=== PATIENT | female | born 1965 | race Caucasian/White ===

== ENCOUNTER 2019-05-01 13:55 | Emergency (ER) | payer BC ==
[2019-05-01] MEDS ORDERED: Lactated Ringers 1,000 ML IV ONE (14:32)
[2019-05-01] MEDS ORDERED: Ondansetron 4 MG/2 ML SDV IVPUSH ONE (14:33)
[2019-05-01] MEDS ORDERED: HYDROmorphone 0.5 MG/0.5 ML Syringe IVPUSH ONE (14:39)
--- NOTE | 2019-05-01 14:48 | EDM.PDOC ---
ED HPI GENERAL MEDICAL PROBLEM - General Chief Complaint: Abdominal Pain Stated Complaint: THREE BOWL SURGERY IN PAST YEAR AND HALF Time Seen by Provider: 05/01/19 14:30 Source of Information: Reports: Patient, Family, RN History Limitations: Reports: Other (lack of old records) - History of Present Illness INITIAL COMMENTS - FREE TEXT/NARRATIVE: 54 yo female visiting here for today presents with abdominal pain and nausea. No fever. Has had at least 3 bowel surgeries for a partial colectomy and adhesions. One surgery was in [facility], one in [place] at [facility] and one at [place]. Does feel like there is some distention. Pain is across much of the upper 2/3 of her abdomen. Has not vomited. Pain began earlier today. Onset: Today Onset Date: 05/01/19 Duration: Hour(s):, Constant Location: Reports: Abdomen Quality: Reports: Pressure Severity: Moderate Improves with: Reports: None Worsens with: Reports: Other (time) Context: Reports: Other (See HPI) Associated Symptoms: Reports: Nausea/Vomiting (no vomiting) Treatments NEGOTIATOR: Reports: Other (see below) (none) abd Pain Score (Numeric/FACES): 6 - Related Data Allergies Allergy/AdvReac Type Severity Reaction Status Date / Time clarithromycin [From Biaxin] Allergy Abdominal Verified 05/01/19 14:16 Pain dust mites Allergy Other Uncoded 05/01/19 14:16 food dyes Allergy Rash Uncoded 05/01/19 14:16 Home Meds: Home Meds Albuterol Sulfate [Proair Hfa] 1 - 2 puff IH Q4H PRN 05/01/19 [History] Aspirin [Ecotrin EC] 81 mg PO DAILY 05/01/19 [History] Cholecalciferol (Vitamin D3) [Vitamin D3] 5,000 unit PO DAILY 05/01/19 [History] ClonazePAM [KlonoPIN] 0.5 mg PO TID PRN 05/01/19 [History] Fluticasone Propionate [Flonase] 2 sprays NS DAILY 05/01/19 [History] Fluticasone Propionate [Flovent HFA 110 MCG] 1 - 2 puff INH DAILY 05/01/19 [ History] Levothyroxine [Synthroid] 50 mcg PO ACBREAKFAST 05/01/19 [History] Lubiprostone [Amitiza] 8 mcg PO BID 05/01/19 [History] PARoxetine HCl [Paxil] 30 mg PO DAILY 05/01/19 [History] Polyethylene Glycol 3350 [MiraLAX] 17 gm PO DAILY 05/01/19 [History] guaiFENesin [Mucinex] 1 - 2 tab PO DAILY PRN 05/01/19 [History] traZODone HCl [Trazodone HCl] 1 - 2 tab PO BEDTIME 05/01/19 [History] Past Medical History Respiratory History: Reports: Asthma 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 05/2018 adhesions, internal hernia of SB. chronic dilated small bowel-. 12/2018- twist fixed- and adhesion fixed Female Surgical History: Reports: Other (See Below) Other Female Surgeries/Procedures: breast augmentation Musculoskeletal Surgical History: Reports: Carpal Tunnel, Other (See Below) Other Musculoskeletal Surgeries/Procedures:: elbow surgery Social & Family History - Tobacco Use Smoking Status *Q: Never Smoker - Caffeine Use Caffeine Use: Reports: Tea - Recreational Drug Use Recreational Drug Use: No ED ROS GENERAL - Review of Systems Review Of Systems: See Below Constitutional: Reports: No Symptoms HEENT: Reports: No Symptoms Respiratory: Reports: No Symptoms Cardiovascular: Reports: No Symptoms GI/Abdominal: Reports: Abdominal Pain, Nausea. Denies: Anorexia, Black Stool, Bloody Stool, Constipation, Diarrhea, Decreased Appetite, Distension, Flatus, Hematemesis, Hematochezia, Melena, Vomiting : Reports: No Symptoms Musculoskeletal: Reports: No Symptoms Skin: Reports: No Symptoms Neurological: Reports: No Symptoms ED EXAM, GI/ABD - Physical Exam Exam: See Below Exam Limited By: No Limitations General Appearance: Alert, WD/WN, Mild Distress Eyes: Bilateral: Normal Appearance Ears: Normal External Exam, Normal Canal, Hearing Grossly Normal Nose: Normal Inspection, No Blood Throat/Mouth: Normal Inspection, Normal Lips, Normal Oropharynx, Normal Voice, No Airway Compromise Head: Atraumatic, Normocephalic Neck: Normal Inspection Respiratory/Chest: No Respiratory Distress, Lungs Clear, Normal Breath Sounds, No Accessory Muscle Use Cardiovascular: Regular Rate, Rhythm, No Edema GI/Abdominal Exam: Normal Bowel Sounds, Soft, Distended, Rebound, Tender ( diffuse). No: Non-Tender, No Distention, Guarding, Rigid, Abnormal Bowel Sounds , Hernia Back Exam: Normal Inspection Extremities: Normal Inspection, Normal Range of Motion, Non-Tender, No Pedal Edema Neurological: Alert, Oriented, CN II-XII Intact, Normal Cognition, No Motor/ Sensory Deficits Psychiatric: Normal Affect, Normal Mood Skin Exam: Warm, Dry, Intact, Normal Color, No Rash Course - Vital Signs Text/Narrative:: Discussed with Dr. Owusu at [facility], hospitalist @ 1645 Last Recorded V/S: Last Vital Signs Temp 36.2 C 05/01/19 14:29 Pulse 83 05/01/19 14:29 Resp 16 05/01/19 14:29 BP 117/73 05/01/19 14:29 Pulse Ox 98 05/01/19 14:29 - Orders/Labs/Meds Orders: Active Orders 24 hr Category Date Time Status Iopamidol [Isovue-300 (61%)] Med 05/01/19 15:30 Active 100 ml IV . DIRECTED Sodium Chloride 0.9% [Normal Saline] 100 ml Med 05/01/19 15:30 Active IV ASDIRECTED Medication Orders Sodium Chloride (Normal Saline) 100 mls @ 3 mls/sec IV ASDIRECTED BRI Last Admin: 05/01/19 15:45 Dose: 3 mls/sec Iopamidol (Isovue-300 (61%)) 100 ml IV . DIRECTED BRI Last Admin: 05/01/19 15:44 Dose: 100 ml Labs: Laboratory Tests 05/01/19 05/01/19 05/01/19 Range/Units 14:49 14:49 14:55 WBC 6.1 (4.5-11.0) K/uL RBC 4.72 (3.30-5.50) M/uL Hgb 12.6 (12.0-15.0) g/dL Hct 39.4 (36.0-48.0) % MCV 84 (80-98) fL MCH 27 (27-31) pg MCHC 32 (32-36) % Plt Count 165 (150-400) K/uL Sodium 139 L (140-148) mmol/L Potassium 4.5 (3.6-5.2) mmol/L Chloride 100 (100-108) mmol/L Carbon Dioxide 29 (21-32) mmol/L Anion Gap 14.5 H (5.0-14.0) mmol/L BUN 25 H (7-18) mg/dL Creatinine 0.9 (0.6-1.0) mg/dL Est Cr Clr Drug Dosing 60.05 mL/min Estimated GFR (MDRD) > 60 (>60) Glucose 96 (74-106) mg/dL Calcium 10.0 (8.5-10.1) mg/dL Total Bilirubin 0.5 (0.2-1.0) mg/dL AST 33 (15-37) U/L ALT 51 (12-78) U/L Alkaline Phosphatase 93 (46-116) U/L Total Protein 8.9 H (6.4-8.2) g/dL Albumin 4.4 (3.4-5.0) g/dL Globulin 4.5 H (2.3-3.5) g/dL Albumin/Globulin Ratio 1.0 L (1.2-2.2) Lipase 178 (73-393) U/L Urine Color Yellow (YELLOW) Urine Appearance Clear (CLEAR) Urine pH 6.0 (5.0-8.0) Ur Specific [place] 1.015 (1.008-1.030) Urine Protein Negative (NEGATIVE) mg/dL Urine Glucose (UA) Normal (NEGATIVE) mg/dL Urine Ketones Negative (NEGATIVE) mg/dL Urine Occult Blood Negative (NEGATIVE) Urine Nitrite Negative (NEGATIVE) Urine Bilirubin Negative (NEGATIVE) Urine Urobilinogen 0.2 (0.2-1.0) EU/dL Ur Leukocyte Esterase Negative (NEGATIVE) Urine RBC 0-5 (0-5) Urine WBC 0-5 (0-5) Ur Epithelial Cells Few Amorphous Sediment Not seen Urine Bacteria Not seen Urine Mucus Not seen Meds: Medications Generic Name Dose Route Start Last Admin Trade Name Freq PRN Reason Stop Dose Admin Sodium Chloride 100 mls @ 3 mls/sec 05/01/19 15:30 05/01/19 15:45 Normal Saline IV 3 mls/sec ASDIRECTED BRI Administration Iopamidol 100 ml 05/01/19 15:30 05/01/19 15:44 Isovue-300 (61%) IV 100 ml . DIRECTED BRI Administration Discontinued Medications Generic Name Dose Route Start Last Admin Trade Name Carola PRN Reason Stop Dose Admin Hydromorphone HCl 0.5 mg 05/01/19 14:39 05/01/19 14:55 Dilaudid IVPUSH 05/01/19 14:40 0.5 mg ONETIME ONE Administration Lactated Ringer's 1,000 mls @ 1,000 mls/hr 05/01/19 14:32 05/01/19 14:48 Ringers, Lactated IV 05/01/19 15:31 1,000 mls/hr BOLUS ONE Administration Ondansetron HCl 4 mg 05/01/19 14:33 05/01/19 14:45 Zofran IVPUSH 05/01/19 14:34 4 mg ONETIME ONE Administration Sodium Chloride 10 ml 05/01/19 15:25 05/01/19 15:54 Saline Flush FLUSH 05/01/19 15:26 10 ml ONETIME ONE Administration - Radiology Interpretation Free Text/Narrative:: CT abd/pelvis-bowel fluid filled and distended., no obvious obstuctive lesion. CT Results Date: 05/01/19 Departure - Departure Time of Disposition: 16:45 Disposition: Home, Self-Care 01 Condition: Fair (bowel obstruction) Clinical Impression: Bowel obstruction Qualifiers: Intestinal obstruction type: unspecified Intestinal obstruction extent: unspecified extent Qualified Code(s): K56.609 - Unspecified intestinal obstruction, unspecified as to partial versus complete obstruction - Discharge Information *PRESCRIPTION DRUG MONITORING PROGRAM REVIEWED*: No *COPY OF PRESCRIPTION DRUG MONITORING REPORT IN PATIENT GUSTAVO: No Instructions: Small Bowel Obstruction, [id number] Referrals: PCP,None [Primary Care Provider] - Forms: ED Department Discharge Additional Instructions: Go directly to the ER at [facility] with your CT scan/lab work. Be NPO between here and there. - My Orders Last 24 Hours: My Active Orders 05/01/19 15:30 Iopamidol [Isovue-300 (61%)] 100 ml IV . DIRECTED Sodium Chloride 0.9% [Normal Saline] 100 ml IV ASDIRECTED - Assessment/Plan Last 24 Hours: My Active Orders 05/01/19 15:30 Iopamidol [Isovue-300 (61%)] 100 ml IV . DIRECTED Sodium Chloride 0.9% [Normal Saline] 100 ml IV ASDIRECTED
[2019-05-01] MEDS ORDERED: Sodium Chloride 0.9% 10 ML Syringe FLUSH ONE (15:25)
[2019-05-01] MEDS ORDERED: Iopamidol 612 MG/ML 100 ML Bottle IV SCH (15:30)
[2019-05-01] MEDS ORDERED: Sodium Chloride 0.9% 100 ML IV SCH (15:30)
--- NOTE | 2019-05-01 16:11 | CRLCT ---
INDICATION: Abdominal pain with distention. TECHNIQUE: Volumetric helical scanning of the abdomen and pelvis was performed with 100 cc of Isovue 300 contrast material IV. Coronal and sagittal reconstructions were obtained. COMPARISON: None. FINDINGS: Postop changes of right hemicolectomy are demonstrated. The bowel loop is generally fluid filled and mildly distended. No obstructive lesion is identified. No bowel wall thickening or free fluid is demonstrated. The liver is unremarkable except for a tiny right lobe cyst. No bile duct dilation is evident. The spleen is normal in size and shape. A 1.4 cm splenic cyst with a densely calcified wall is noted. A few calcified granulomas in the spleen are also demonstrated. The adrenal glands are unremarkable. The pancreas is within normal limits. The kidneys are unremarkable. No lymphadenopathy is evident. The uterus and ovaries are grossly negative. The lung bases are clear. The heart is normal in size. IMPRESSION: 1. Bowel generally fluid filled and mildly distended without obvious obstructive lesion. Question gastroenteritis. 2. Post right hemicolectomy. 3. 1.4 cm splenic cyst with densely calcified wall. Please note that all CT scans at this facility use dose modulation, iterative reconstruction, and/or weight-based dosing when appropriate to reduce radiation dose to as low as reasonably achievable. Dictated by Michele Quintero MD @ May 01 2019 4:02PM Signed by Dr. Michele Quintero @ May 01 2019 4:09PM
== END 2019-05-01 16:55 | disposition home or self-care (01) ==
LOC: JP.ED 13:55
DX: K56.609 Unspecified intestinal obstruction, unspecified as to partial versus complete obstruction (principal); E03.9 Hypothyroidism, unspecified; F41.9 Anxiety disorder, unspecified; F32.9 Major depressive disorder, single episode, unspecified; Z79.82 Long term (current) use of aspirin; Z79.899 Other long term (current) drug therapy; Z91.018 Allergy to other foods; Z88.1 Allergy status to other antibiotic agents; Z90.49 Acquired absence of other specified parts of digestive tract
CPT/HCPCS: 36415; 74177; 80053; 81001; 83690; 85027; 96361; 96374; 96375; 99284; J1170; J2405; J7030; J7120; Q9967